=== PATIENT | female | born 1985 | race Hispanic/Latino ===

== ENCOUNTER 2023-08-28 15:29 | Inpatient (IN) | payer OTHER ==
[~2023-08-28] VITALS: Ht 154.9 cm; Wt 97.1 kg
[2023-08-28 16:06] LABS: BASOPHILS # (AUTO) 0.07 K/uL (0.00-0.20); BASOPHILS % (AUTO) 0.7 % (0.0-5.0); EOSINOPHILS # (AUTO) 0.34 K/uL (0.00-0.70); EOSINOPHILS % (AUTO) 3.2 % (0.0-8.0); HEMATOCRIT 29.5 % (36-48); IMMATURE GRANULOCYTE ABSOLUTE 0.05 K/uL (0-1); LYMPHOCYTES # (AUTO) 1.7 K/uL (1.0-4.8); LYMPHOCYTES % (AUTO) 16.1 % (21.0-51.0); MEAN CORPUSCULAR HEMOGLOBIN 23.5 pg (27.0-33.0); MEAN CORPUSCULAR HGB CONC 30.8 g/dL (32.0-36.0); MONOCYTES # (AUTO) 0.9 K/uL (0.1-1.0); MONOCYTES % (AUTO) 8.8 % (3.0-13.0); NEUTROPHILS # (AUTO) 7.5 K/uL (1.8-7.7); NEUTROPHILS % (AUTO) 70.7 % (40.0-77.0); PLATELET COUNT (AUTO) 268 K/uL (130-400); RED BLOOD CELL COUNT(AUTO) 3.88 MIL/uL (4.00-5.50); RED CELL DISTRIBUTION WIDTH 16.6 % (11.0-15.5); WHITE BLOOD COUNT (AUTO) 10.6 K/uL (4.8-10.8)
[2023-08-28 16:06] LABS: ADD UA MICROSCOPIC YES; APPEARANCE,URINE CLOUDY (CLEAR); BILIRUBIN,URINE NEGATIVE (NEGATIVE); COLOR,URINE YELLOW (YELLOW); GLUCOSE, URINE (UA) 30 mg/dL (NEGATIVE); KETONES,URINE NEGATIVE (NEGATIVE); LEUKOCYTE ESTERASE ,URINE NEGATIVE Leu/uL (NEGATIVE); NITRATE,URINE NEGATIVE (NEGATIVE); OCCULT BLOOD,URINE SMALL (NEGATIVE); PROTEIN,URINE 30 mg/dL (NEGATIVE)
[2023-08-28 16:12] LABS: BACTERIA,URINE RARE /HPF (None Seen); MUCUS,URINE RARE LPF (None Seen); SQUAMOUS EPITHELIAL CELL,UR MOD /HPF (0-2); YEAST,URINE BUDDING FEW /HPF (None Seen)
[2023-08-28 16:13] LABS: HCG,QUALITATIVE URINE NEGATIVE (NEGATIVE)
[2023-08-28 16:16] LABS: CREATININE 0.7 mg/dL (0.5-1.5); POTASSIUM 3.4 mmol/L (3.5-5.1)
[2023-08-28 16:21] LABS: ALBUMIN 3.1 g/dL (3.5-5.0); BILIRUBIN,TOTAL 0.3 mg/dL (0.2-1.0)
[2023-08-28] MEDS ORDERED: HYOSCYAMINE SULFATE 0.125 MG TAB.SUBL SL ONE (17:00)
[2023-08-28] MEDS ORDERED: FAMOTIDINE 20MG VIAL IV ONE (17:00)
[2023-08-28] MEDS ORDERED: KETOROLAC 30MG VIAL (30MG/ML) IVP ONE (18:30)
[2023-08-28] MEDS ORDERED: 0.9%NACL 1000ML 1,000 ML IV SCH (18:30)
[2023-08-28] MEDS ORDERED: ZOSYN 3.375GM +NS 50ML IV ONE (18:30)
[2023-08-28] MEDS ORDERED: ACETAMINOPHEN 650 MG SUPPOSITORY RC PRN (19:00)
[2023-08-28] MEDS ORDERED: MORPHINE 2 MG SYG IV PRN (19:00)
[2023-08-28] MEDS ORDERED: HYDRALAZINE 20MG/ML VIAL IV PRN (19:00)
[2023-08-28] MEDS ORDERED: ONDANSETRON 4MG INJ IV PRN (19:00)
[2023-08-28] MEDS: FAMOTIDINE 20MG VIAL IV SCH (21:00)
[2023-08-28] MEDS: LACTATED RINGERS 1000ML 1,000 ML IV SCH (21:25)
[2023-08-28] MEDS: MORPHINE 4 MG SYG IV PRN (21:27)
[2023-08-28] MEDS ORDERED: MAGNESIUM 2GM PREMIX 50ML 50 ML IV PRN (22:00)
[2023-08-28] MEDS ORDERED: POTASSIUM CHLORIDE 20MEQ/100ML 100 ML IV PRN (22:00)
[2023-08-29] VITALS (25 sets, daily range): BP systolic 106–157; BP diastolic 64–85; PULSE 57–96; RESP 16–24; O2SAT 96–100
[2023-08-29] MEDS: ZOSYN 3.375GM+NS 50ML 50 ML IV SCH ×3 (03:01→18:48)
[2023-08-29] MEDS: MORPHINE 4 MG SYG IV PRN ×3 (03:02→14:25)
[2023-08-29 06:39] LABS: BASOPHILS # (AUTO) 0.05 K/uL (0.00-0.20); BASOPHILS % (AUTO) 0.5 % (0.0-5.0); EOSINOPHILS # (AUTO) 0.09 K/uL (0.00-0.70); HEMATOCRIT 25.5 % (36-48); IMMATURE GRANULOCYTE ABSOLUTE 0.05 K/uL (0-1); LYMPHOCYTES # (AUTO) 1.3 K/uL (1.0-4.8); LYMPHOCYTES % (AUTO) 13.7 % (21.0-51.0); MEAN CORPUSCULAR HEMOGLOBIN 23.1 pg (27.0-33.0); MEAN CORPUSCULAR HGB CONC 30.6 g/dL (32.0-36.0); MEAN CORPUSCULAR VOLUME 75.4 fL (79-99); MONOCYTES # (AUTO) 0.6 K/uL (0.1-1.0); MONOCYTES % (AUTO) 6.5 % (3.0-13.0); NEUTROPHILS # (AUTO) 7.1 K/uL (1.8-7.7); NEUTROPHILS % (AUTO) 77.8 % (40.0-77.0); PLATELET COUNT (AUTO) 229 K/uL (130-400); RED BLOOD CELL COUNT(AUTO) 3.38 MIL/uL (4.00-5.50); RED CELL DISTRIBUTION WIDTH 16.6 % (11.0-15.5); WHITE BLOOD COUNT (AUTO) 9.1 K/uL (4.8-10.8)
[2023-08-29 06:50] LABS: INR < 0.93 (0.85-1.15); PROTHROMBIN TIME 10.6 SEC (9.6-11.6)
[2023-08-29 06:51] LABS: PARTIAL THROMBOPLASTIN TIME 28.3 SEC (26.3-35.5)
[2023-08-29 07:02] LABS: CREATININE 0.5 mg/dL (0.5-1.5); MAGNESIUM 1.6 mg/dL (1.80-2.40); PHOSPHORUS 2.9 mg/dL (2.5-4.9); POTASSIUM 3.7 mmol/L (3.5-5.1)
[2023-08-29] MEDS: FAMOTIDINE 20MG VIAL IV SCH ×2 (08:09→20:06)
[2023-08-29 09:48] LABS: ALBUMIN 3.1 g/dL (3.5-5.0); BILIRUBIN,DIRECT 0.1 mg/dL (0.0-0.3); BILIRUBIN,TOTAL 0.7 mg/dL (0.2-1.0); TOTAL PROTEIN, SERUM 7.3 g/dL (6.0-8.3)
[2023-08-29] MEDS ORDERED: LIDOCAINE HCL 1% 20 ML VIAL ONE (15:28)
[2023-08-29] MEDS ORDERED: BUPIVACAINE/PF 0.25% 30ML VIAL IJ ONE (15:28)
[2023-08-29] MEDS ORDERED: LIDOCAINE PF 100MG/5ML (2%) SYRINGE 5ML ONE (16:35)
[2023-08-29] MEDS ORDERED: MIDAZOLAM HCL 1 MG/ML 2ML VIAL ONE (16:35)
[2023-08-29] MEDS ORDERED: LIDOCAINE HCL 4% LTA SOL 4 ML VIAL ONE (16:35)
[2023-08-29] MEDS ORDERED: FENTANYL CITRATE PF 50 MCG/1 ML 2ML VIAL ONE ×2 (16:36→17:38)
[2023-08-29] MEDS ORDERED: PROPOFOL 10 MG/ML 20ML VIAL IV ONE (16:36)
[2023-08-29] MEDS ORDERED: ROCURONIUM BROMIDE 10MG/1ML 5ML VL ONE ×2 (16:38→17:22)
[2023-08-29] MEDS ORDERED: ONDANSETRON 4MG INJ ONE (16:48)
[2023-08-29] MEDS ORDERED: DEXAMETHASONE SOD PHOSPHATE 10MG/ML 1ML VIAL ONE (16:48)
[2023-08-29] MEDS ORDERED: PHENYLEPHRINE HCL 10 MG/ML 1ML VIAL IV ONE (16:58)
[2023-08-29] MEDS ORDERED: 0.9%NACL 10ML VIAL ONE (16:58)
[2023-08-29] MEDS ORDERED: GLYCOPYRROLATE 1 MG/5 ML SYRINGE ONE (18:10)
[2023-08-29] MEDS ORDERED: NEOSTIGMINE 5MG/5ML SYR IV ONE (18:10)
[2023-08-29] MEDS ORDERED: MEPERIDINE-PF 25 MG/ML SYG ONE (18:32)
[2023-08-29] MEDS ORDERED: ZOSYN 3.375GM+NS 50ML 50 ML ONE (18:47)
[2023-08-29] MEDS: LACTATED RINGERS 1000ML 1,000 ML IV SCH ×2 (18:48→21:40)
[2023-08-30 01:15] VITALS: BP 122/73; PULSE 89; RESP 18
[2023-08-30] MEDS: ZOSYN 3.375GM+NS 50ML 50 ML IV SCH ×2 (01:34→10:06)
[2023-08-30] MEDS: MORPHINE 4 MG SYG IV PRN (01:35)
[2023-08-30 04:03] VITALS: BP 105/65; PULSE 78; RESP 18
[2023-08-30 04:29] LABS: BASOPHILS # (AUTO) 0.03 K/uL (0.00-0.20); BASOPHILS % (AUTO) 0.3 % (0.0-5.0); EOSINOPHILS # (AUTO) 0.01 K/uL (0.00-0.70); EOSINOPHILS % (AUTO) 0.1 % (0.0-8.0); HEMATOCRIT 25.8 % (36-48); IMMATURE GRANULOCYTE ABSOLUTE 0.05 K/uL (0-1); LYMPHOCYTES # (AUTO) 0.7 K/uL (1.0-4.8); MEAN CORPUSCULAR HEMOGLOBIN 22.9 pg (27.0-33.0); MEAN CORPUSCULAR HGB CONC 30.6 g/dL (32.0-36.0); MEAN CORPUSCULAR VOLUME 74.8 fL (79-99); MONOCYTES # (AUTO) 0.6 K/uL (0.1-1.0); MONOCYTES % (AUTO) 5.4 % (3.0-13.0); NEUTROPHILS # (AUTO) 8.8 K/uL (1.8-7.7); NEUTROPHILS % (AUTO) 86.7 % (40.0-77.0); PLATELET COUNT (AUTO) 201 K/uL (130-400); RED BLOOD CELL COUNT(AUTO) 3.45 MIL/uL (4.00-5.50); RED CELL DISTRIBUTION WIDTH 16.6 % (11.0-15.5); WHITE BLOOD COUNT (AUTO) 10.2 K/uL (4.8-10.8)
[2023-08-30 04:47] LABS: WBC MORPHOLOGY CONSISTENT W/DIFF
[2023-08-30 04:54] LABS: ALBUMIN 2.5 g/dL (3.5-5.0); BILIRUBIN,DIRECT 0.1 mg/dL (0.0-0.3); BILIRUBIN,TOTAL 0.6 mg/dL (0.2-1.0); CREATININE 0.5 mg/dL (0.5-1.5); POTASSIUM 3.8 mmol/L (3.5-5.1)
[2023-08-30 08:00] VITALS: BP 135/77; PULSE 94; RESP 18; O2SAT 96
[2023-08-30] MEDS: FAMOTIDINE 20MG VIAL IV SCH (09:16)
[2023-08-30 12:00] VITALS: BP 110/64; PULSE 102; RESP 20
[2023-08-30] MEDS ORDERED: ACETAMINOPHEN WITH CODEINE 1 TAB TAB PO PRN (12:00)
[2023-08-30 16:00] VITALS: BP 123/77; PULSE 103; RESP 20
[2023-08-30] MEDS ORDERED: AMOX1TAB16 PO (17:41)
== END 2023-08-30 18:32 | disposition home or self-care (01) | DRG 418 ==
LOC: EDH 15:29 → EDHIP 15:30 → WSH 22:05 → 4CH 08-29 19:30
PROVIDERS: ADMIT Internal Medicine; ATTEND Internal Medicine
PROC: 0FT44ZZ Resection of Gallbladder, Percutaneous Endoscopic Approach (ICD-10-PCS; principal; 2023-08-29 16:32)
DX: K80.00 Calculus of gallbladder with acute cholecystitis without obstruction (principal); E87.1 Hypo-osmolality and hyponatremia; D64.9 Anemia, unspecified; E83.42 Hypomagnesemia; E87.6 Hypokalemia; F17.210 Nicotine dependence, cigarettes, uncomplicated; K66.0 Peritoneal adhesions (postprocedural) (postinfection); K82.8 Other specified diseases of gallbladder; Z59.7 Insufficient social insurance and welfare support; Z75.3 Unavailability and inaccessibility of health-care facilities
CPT/HCPCS: 36415; 76705; 80048; 80053; 80076; 81001; 81025; 83690; 83735; 84100; 84484; 85025; 85610; 85730; 86850; 86900; 86901; 86923; 87040; 87088; 93005; G0378; J1100; J1885; J2001; J2175; J2250; J2270; J2371; J2405; J2543; J2704; J2710; J3010; J3475; J3480; J3490; J7120; J0665